=== PATIENT | male | born 1985 | race Two or more races ===

== ENCOUNTER 2019-02-25 08:14 | Inpatient (IN) | payer SELFPAY ==
[~2019-02-25] VITALS: Ht 162.6 cm; Wt 68.0 kg
[2019-02-25 08:17] VITALS: BP 145/97
--- NOTE | 2019-02-25 08:17 | NUR ---
ED Nurse Note: PT BROUGHT IN BY [facility]LEX[facility] FROM STREET. AOX1 - ONLY ORIENTED TO SELF BUT IS CALM AND COOPERATIVE. PER EMS, PT HAD A WITNESSED TONIC-CLONIC SEIZURE LASTING ABOUT 20 SECONDS WHEN BYSTANDER CALLED 911. AT BEDSIDE, PT IS ANSWERING QUESTIONS, SPEAKING IN FULL SENTENCES THOUGH CONFUSED.. SEIZURE PROTOCOL IN PLACE.
--- NOTE | 2019-02-25 08:18 | NUR ---
Note diana in EDM - 02/25/19 at 0842 by JOSE LUIS ED Nurse Note: PT DENIES ALCOHOL OR DRUG USE. PT STATES HIS LAST DRINK WAS 2 DAYS AGO. PT STATES THE ONLY DRUG HE USES IS WEED WHICH WAS LAST SMOKED 1 WEEK AGO.
--- NOTE | 2019-02-25 08:18 | NUR ---
ED Nurse Note: PT DENIES ALCOHOL OR DRUG USE TODAY. PT STATES HIS LAST DRINK WAS 2 DAYS AGO WHEN HE HAD A FEW BEERS. PT STATES THE ONLY DRUG HE USES IS WEED WHICH WAS LAST SMOKED 1 WEEK AGO.
--- NOTE | 2019-02-25 08:20 | NUR ---
ED Nurse Note: PT REFUSED TO COMPLETE MINI-COG. PT DRESSED IN WEATHER APPROPRIATE CLOTHING. FOOD OFFERED TO PT BUT PT REFUSED. PT GIVEN WATER. PT OFFERED RESOURCES REGARDING HOMELESS SHELTERS, FREE HEALTH CLINICS, AND DRUG AND ALCOHOL REHABILITATION BUT PT REFUSED. PT REFUSES TO DISCLOSE WHERE HE WILL GO ONCE DISCHARGED. THE ONLY THING PT STATES IS THAT HE HAS TO RETURN TO WORK ON WEDNESDAY.
[2019-02-25] MEDS ORDERED: UNOBMED (08:23)
[2019-02-25] MEDS ORDERED: LORazepam Inj 2mg/ml 1ml IV ONE ×4 (08:45→14:00)
[2019-02-25 08:51] LABS: BASOPHILS % (AUTO) 0.6 % (0.0-2.0); HEMATOCRIT 44.3 % (42.0-52.0); HEMOGLOBIN 14.5 G/DL (14.2-18.0); LYMPHOCYTES % (AUTO) 12.1 % (20.0-45.0); MEAN CORPUSCULAR VOLUME 92 FL (80-99); MONOCYTES % (AUTO) 7.5 % (1.0-10.0); NEUTROPHILS % (AUTO) 79.8 % (45.0-75.0); PLATELET COUNT 187 K/UL (150-450); RED BLOOD COUNT 4.83 M/UL (4.70-6.10); RED CELL DISTRIBUTION WIDTH 13.1 % (11.6-14.8); WHITE BLOOD COUNT 14.3 K/UL (4.8-10.8)
[2019-02-25 09:07] LABS: ANION GAP 24 mmol/L (5-15); BLOOD UREA NITROGEN 5 mg/dL (7-18); CALCIUM 9.8 MG/DL (8.5-10.1); CARBON DIOXIDE 15 MMOL/L (21-32); CHLORIDE 98 MMOL/L (98-107); CREATININE 1.3 MG/DL (0.55-1.30); POTASSIUM 3.8 MMOL/L (3.5-5.1); SODIUM 137 MMOL/L (136-145)
[2019-02-25 09:11] LABS: ALANINE AMINOTRANSFERASE 157 U/L (12-78); ALBUMIN 4.8 G/DL (3.4-5.0); ALBUMIN/GLOBULIN RATIO 1.2 (1.0-2.7); ALKALINE PHOSPHATASE 109 U/L (46-116); ASPARTATE AMINO TRANSFERASE 186 U/L (15-37); BILIRUBIN,TOTAL 0.9 MG/DL (0.2-1.0)
--- NOTE | 2019-02-25 11:22 | NUR ---
Note estivenone in EDM - 02/25/19 at 1132 by JOSE LUIS ED Nurse Note: PT LAYING PEACEFULLY IN BED IN NAD. AOX4. DISCHARGE PAPERWORK EXPLAINED TO PT. PT VERBALIZES UNDERSTANDING AND ALL QUESTIONS ANSWERED. DISCHARGE PAPERWORK GIVEN TO PT, IV AND ID WRISTBAND REMOVED. PT DRESSED IN WEATHER APPROPRIATE CLOTHING. PT OFFERED FOOD BUT REFUSED. PT GIVEN WATER. PT OFFERED RESOURCES ON HOMELESS SHELTERS, FREE HEALTH CLINICS, AND DRUG AND ALCOHOL REHABILITATION BUT PT REFUSED. PT STATES HE HAS A JOB AND DOES NOT NEED HELP AT THIS TIME. PT WALKED OUT OF ER WITH STEADY GAIT AND ALL BELONGINGS.
[2019-02-25] MEDS ORDERED: LORazepam Inj 2mg/ml 1ml IM ONE (11:30)
[2019-02-25] MEDS ORDERED: Haloperidol 5mg/ml Inj IM ONE (11:30)
--- NOTE | 2019-02-25 11:33 | NUR ---
ED Nurse Note: PT VERBALIZES DESIRE TO GET DISCHARGED, REMOVED LEADS AND GOT OUT OF GOWN AND INTO STREET CLOTHES. GAIT ASSESSED AND GAIT UNSTEADY. PT BROUGHT BACK TO BED AND PLACED BACK ON [employer]PERATIONS.
[2019-02-25 12:23] VITALS: BP 128/75
--- NOTE | 2019-02-25 12:40 | Emergency Room Report ---
History of Present Illness General Chief Complaint: Seizure Source: Patient, EMS (Lukas Zapata MD) Present Illness HPI 33-year-old female presents ED for evaluation. Brought in by EMS. Patient had reportedly had a seizure witnessed by bystanders. EMS states that witnesses described a convulsive nature but patient never lost consciousness. Patient denies hitting his head or LOC. Patient on arrival is somewhat tremulous. Is a poor historian. No signs of distress upon arrival. No other aggravating relieving factors. No other associated symptoms (Lukas Zapata MD) Allergies: Coded Allergies: UNABLE TO ASSESS (Unverified , 02/25/19) Patient History Past Medical History: none Past Surgical History: none Pertinent Family History: none Social History: Reports: drug use; Denies: smoking, alcohol use Immunizations: UTD Reviewed Nursing Documentation: PMH: Agreed; PSxH: Agreed (Lukas Zapata MD) Review of Systems All Other Systems: negative except mentioned in HPI (Lukas Zapata MD) Physical Exam Vital Signs Date Time Temp Pulse Resp B/P (MAP) Pulse Ox O2 Delivery O2 Flow Rate FiO2 02/25/19 08:11 99.0 136 20 152/87 (108) 98 Room Air Sp02 EP Interpretation: reviewed, normal General Appearance: no apparent distress, GCS 15, non-toxic Head: normocephalic, atraumatic Eyes: bilateral eye normal inspection, bilateral eye PERRL ENT: hearing grossly normal, normal pharynx, no angioedema, normal voice Neck: full range of motion, supple/symm/no masses Respiratory: chest non-tender, lungs clear, normal breath sounds, speaking full sentences Cardiovascular #1: regular rate, rhythm, no edema Cardiovascular #2: 2+ carotid (R), 2+ carotid (L), 2+ radial (R), 2+ radial (L) , 2+ dorsalis pedis (R), 2+ dorsalis pedis (L) Gastrointestinal: normal bowel sounds, non tender, soft, non-distended, no guarding, no rebound Rectal: deferred Genitourinary: normal inspection, no CVA tenderness Musculoskeletal: back normal, gait/station normal, normal range of motion, non- tender Neurologic: alert, responsive, motor strength/tone normal, sensory intact, speech normal, other - disoriented. tremulous Psychiatric: judgement/insight normal, memory normal, no suicidal/homicidal ideation, anxious Reflexes: 3+ bicep (R), 3+ bicep (L), 3+ tricep (R), 3+ tricep (L), 3+ knee (R) , 3+ knee (L) Lymphatic: no adenopathy (Lukas Zapata MD) Medical Decision Making Diagnostic Impression: Primary Impression: Methamphetamine abuse Additional Impression: Epileptic seizure, generalized Labs Test 02/25/19 08:30 White Blood Count 14.3 K/UL (4.8-10.8) Red Blood Count 4.83 M/UL (4.70-6.10) Hemoglobin 14.5 G/DL (14.2-18.0) Hematocrit 44.3 % (42.0-52.0) Mean Corpuscular Volume 92 FL (80-99) Mean Corpuscular Hemoglobin 30.1 PG (27.0-31.0) Mean Corpuscular Hemoglobin Concent 32.8 G/DL (32.0-36.0) Red Cell Distribution Width 13.1 % (11.6-14.8) Platelet Count 187 K/UL (150-450) Mean Platelet Volume 6.1 FL (6.5-10.1) Neutrophils (%) (Auto) 79.8 % (45.0-75.0) Lymphocytes (%) (Auto) 12.1 % (20.0-45.0) Monocytes (%) (Auto) 7.5 % (1.0-10.0) Eosinophils (%) (Auto) 0.0 % (0.0-3.0) Basophils (%) (Auto) 0.6 % (0.0-2.0) Sodium Level 137 MMOL/L (136-145) Potassium Level 3.8 MMOL/L (3.5-5.1) Chloride Level 98 MMOL/L (98-107) Carbon Dioxide Level 15 MMOL/L (21-32) Anion Gap 24 mmol/L (5-15) Blood Urea Nitrogen 5 mg/dL (7-18) Creatinine 1.3 MG/DL (0.55-1.30) Estimat Glomerular Filtration Rate > 60 mL/min (>60) Glucose Level 162 MG/DL (74-106) Calcium Level 9.8 MG/DL (8.5-10.1) Total Bilirubin 0.9 MG/DL (0.2-1.0) Aspartate Amino Transf (AST/SGOT) 186 U/L (15-37) Alanine Aminotransferase (ALT/SGPT) 157 U/L (12-78) Alkaline Phosphatase 109 U/L (46-116) Total Protein 8.8 G/DL (6.4-8.2) Albumin 4.8 G/DL (3.4-5.0) Globulin 4.0 g/dL Albumin/Globulin Ratio 1.2 (1.0-2.7) Salicylates Level 1.2 ug/mL (2.8-20) Urine Opiates Screen Negative (NEGATIVE) Acetaminophen Level < 2 MCG/ML (10-30) Urine Barbiturates Screen Negative (NEGATIVE) Phencyclidine (PCP) Screen Negative (NEGATIVE) Urine Amphetamines Screen Positive (NEGATIVE) Urine Benzodiazepines Screen Negative (NEGATIVE) Urine Cocaine Screen Negative (NEGATIVE) Urine Marijuana (THC) Screen Negative (NEGATIVE) Serum Alcohol < 3 mg/dL (Lukas Zapata MD) ER Course Patient was endorsed to me by Dr. Zapata. Patient was noted to have some prior history of possible seizure. Laboratory testing showed some positive for amphetamine. Patient was noted to be continued education after multiple doses of medications. He was given IV phenobarbital. He was noted to have intermittent tachycardia episodes. Dr. Drew was contacted from [facility] for inpatient management due to panel physician Labs Test 02/25/19 08:30 White Blood Count 14.3 K/UL (4.8-10.8) Red Blood Count 4.83 M/UL (4.70-6.10) Hemoglobin 14.5 G/DL (14.2-18.0) Hematocrit 44.3 % (42.0-52.0) Mean Corpuscular Volume 92 FL (80-99) Mean Corpuscular Hemoglobin 30.1 PG (27.0-31.0) Mean Corpuscular Hemoglobin Concent 32.8 G/DL (32.0-36.0) Red Cell Distribution Width 13.1 % (11.6-14.8) Platelet Count 187 K/UL (150-450) Mean Platelet Volume 6.1 FL (6.5-10.1) Neutrophils (%) (Auto) 79.8 % (45.0-75.0) Lymphocytes (%) (Auto) 12.1 % (20.0-45.0) Monocytes (%) (Auto) 7.5 % (1.0-10.0) Eosinophils (%) (Auto) 0.0 % (0.0-3.0) Basophils (%) (Auto) 0.6 % (0.0-2.0) Sodium Level 137 MMOL/L (136-145) Potassium Level 3.8 MMOL/L (3.5-5.1) Chloride Level 98 MMOL/L (98-107) Carbon Dioxide Level 15 MMOL/L (21-32) Anion Gap 24 mmol/L (5-15) Blood Urea Nitrogen 5 mg/dL (7-18) Creatinine 1.3 MG/DL (0.55-1.30) Estimat Glomerular Filtration Rate > 60 mL/min (>60) Glucose Level 162 MG/DL (74-106) Calcium Level 9.8 MG/DL (8.5-10.1) Total Bilirubin 0.9 MG/DL (0.2-1.0) Aspartate Amino Transf (AST/SGOT) 186 U/L (15-37) Alanine Aminotransferase (ALT/SGPT) 157 U/L (12-78) Alkaline Phosphatase 109 U/L (46-116) Total Protein 8.8 G/DL (6.4-8.2) Albumin 4.8 G/DL (3.4-5.0) Globulin 4.0 g/dL Albumin/Globulin Ratio 1.2 (1.0-2.7) Salicylates Level 1.2 ug/mL (2.8-20) Urine Opiates Screen Negative (NEGATIVE) Acetaminophen Level < 2 MCG/ML (10-30) Urine Barbiturates Screen Negative (NEGATIVE) Phencyclidine (PCP) Screen Negative (NEGATIVE) Urine Amphetamines Screen Positive (NEGATIVE) Urine Benzodiazepines Screen Negative (NEGATIVE) Urine Cocaine Screen Negative (NEGATIVE) Urine Marijuana (THC) Screen Negative (NEGATIVE) Serum Alcohol < 3 mg/dL (Isac Dominique MD) EKG Diagnostic Results Rate: tachycardiac Rhythm: NSR ST Segments: no acute changes ASA given to the pt in ED: No (Lukas Zapata MD) Rhythm Strip Diag. Results EP Interpretation: yes Rhythm: NSR, no PVC's, no ectopy (Lukas Zapata MD) Last Vital Signs Date Time Temp Pulse Resp B/P (MAP) Pulse Ox O2 Delivery O2 Flow Rate FiO2 02/25/19 12:23 98.5 115 21 128/75 98 Room Air Status: improved (Lukas Zapata MD) Status: unchanged (Isac Dominique MD) Disposition: ADMITTED INPATIENT Condition: Stable Referrals: NOT CHOSEN IPA/,REFERRING (PCP) [facility] Henson [facility] Patient Instructions: Stimulant Use Disorder-Methamphetamines Lukas Zapata MD Feb 25, 2019 12:40 Isac Dominique MD Feb 25, 2019 16:05
--- NOTE | 2019-02-25 14:08 | NUR ---
ED Nurse Note: FOLLOWED UP WITH THE PHARMACIST REGARDING THE ORDERED MED
[2019-02-25] MEDS ORDERED: LORazepam Inj 2mg/ml 1ml ONE (14:12)
--- NOTE | 2019-02-25 14:16 | NUR ---
ED Nurse Note: NAME PROVIDED FOR REGISTRATION BUT NOT UPDATED ON [employer]. MEDICATION PULLED FROM [employer] UNDER RADHA BALBUENA DONE WITH ALL PREVIOUS MEDICATIONS. PHARMACY AWARE.
--- NOTE | 2019-02-25 15:23 | NUR ---
ED Nurse Note: PT TO CT VIA RAIN.
[2019-02-25 15:44] VITALS: BP 122/84
[2019-02-25] MEDS ORDERED: Haloperidol 5mg/ml Inj IM PRN (16:45)
--- NOTE | 2019-02-25 16:51 | Diagnostic Imaging Report ---
EXAM: CT Head Without Intravenous Contrast CLINICAL HISTORY: AMS TECHNIQUE: Axial computed tomography images of the head brain without intravenous contrast. CTDI is 73.90 mGy and DLP is 2334 mGy-cm. One or more of the following dose reduction techniques were used: automated exposure control, adjustment of the mA and or kV according to patient size, use of iterative reconstruction technique. COMPARISON: none FINDINGS: Brain: Unremarkable. No hemorrhage. No significant white matter disease. No edema. Ventricles: Severe motion artifact degrades detail on the superior aspect of the head just above the lateral ventricles. Technologist reports the patient stood up at the end of the examination and there was no attempt at rescanning the patient. Bones joints: Limited assessment of the calvarium is unremarkable. Bilateral nasal bone fractures with associated deformity. Soft tissues: Unremarkable. Sinuses: Scattered sinus mucosal thickening involving the ethmoid air cells and greatest extent. Mastoids are clear. Mastoid air cells: See above. IMPRESSION: 1. Motion degraded study showing bilateral nasal bone fractures with associated deformity but no acute intracranial pathology. Consider short- term follow-up when the patient is better able to comply with positioning instructions. 2. It should be noted the patient's radiation dose is at least twice what is usually administered for an examination of this type. It could be that patient agitation and noncompliance with positioning explains the exposure but correlation with equipment QA testing is recommended. <MYCVCSECTION> [employer] 02 25 19 17:02 Verify Receipt Verified receipt with Dr. Dominique on 02 25 17:02 (-07:00)
--- NOTE | 2019-02-25 16:53 | History and Physical ---
History of Present Illness General Date patient seen: Feb 25, 2019 Time patient seen: 15:35 Reason for Hospitalization: Seizure, methamphetamine abuse Present Illness HPI Brian Dawson is a 33 yo man with no known PMH, homeless, who was brought in by ambulance after being witnessed outside by bystander for having a 20 seconds episode of "tonic clonic like" seizure. History obtained from chart, ED physician, and ED RN as patient altered and lethargic after receiving multiple doses of IV medication and unable to answer questions appropriately. Per RN, patient was confused on arrival and did not know where he was. He reportedly had last EtOH drink about 2 days ago and used marijuana about a week ago. In the ED, patient initially noted to be tachycardic to 130s and hypertensive to SBP 150s, temperature 99, since improved to BP 128/75 and HR in 90s after IV medication. Patient was given a total of 8mg IV ativan and 5mg IM haldol and phenobarbital 65mg x1 for severe agitation. Labs notable for mild leukocytosis 14.3, bicarb 15, AG 24, AST 186, ALT 157, and toxicology positive for amphetamines, serum alcohol negative. EKG with sinus tachycardia and RVH. Unable to obtain full ROS and PMH/PSH/FH/SH due to AMS. Allergies: Coded Allergies: UNABLE TO ASSESS (Unverified , 02/25/19) Medication History Miscellaneous Medications Unable to Obtain Medications (Unable To Obtain Meds), (Reported) Patient History Limited by: medical condition - amphetamine toxicity History Provided By: Medical Record, EMS Healthcare decision maker Resuscitation status Advanced Directive on File Review of Systems All Other Systems: negative except mentioned in HPI - unable to obtain full ROS due to AMS Physical Exam General Appearance: no apparent distress, lethargic, confused Lines, tubes and drains: peripheral HEENT: normocephalic, atraumatic Neck: supple Respiratory/Chest: lungs clear, no respiratory distress, no accessory muscle use Cardiovascular/Chest: regular rhythm, tachycardia Abdomen: normal bowel sounds, non tender, soft Extremities: no edema Skin Exam: warm/dry Neurologic: disoriented, other - reportedly agitated in ED, confused, AAOx0, lethargic on assessment after receiving multiple medications Musculoskeletal: normal muscle bulk Last 24 Hour Vital Signs Date Time Temp Pulse Resp B/P (MAP) Pulse Ox O2 Delivery O2 Flow Rate FiO2 02/25/19 15:44 98.4 89 17 122/84 98 Room Air 02/25/19 12:23 98.5 115 21 128/75 98 Room Air 02/25/19 08:17 137 23 Room Air 02/25/19 08:17 99.0 137 23 145/97 98 Room Air 02/25/19 08:11 99.0 136 20 152/87 (108) 98 Room Air Laboratory Tests Test 02/25/19 08:30 White Blood Count 14.3 K/UL (4.8-10.8) H Red Blood Count 4.83 M/UL (4.70-6.10) Hemoglobin 14.5 G/DL (14.2-18.0) Hematocrit 44.3 % (42.0-52.0) Mean Corpuscular Volume 92 FL (80-99) Mean Corpuscular Hemoglobin 30.1 PG (27.0-31.0) Mean Corpuscular Hemoglobin Concent 32.8 G/DL (32.0-36.0) Red Cell Distribution Width 13.1 % (11.6-14.8) Platelet Count 187 K/UL (150-450) Mean Platelet Volume 6.1 FL (6.5-10.1) L Neutrophils (%) (Auto) 79.8 % (45.0-75.0) H Lymphocytes (%) (Auto) 12.1 % (20.0-45.0) L Monocytes (%) (Auto) 7.5 % (1.0-10.0) Eosinophils (%) (Auto) 0.0 % (0.0-3.0) Basophils (%) (Auto) 0.6 % (0.0-2.0) Sodium Level 137 MMOL/L (136-145) Potassium Level 3.8 MMOL/L (3.5-5.1) Chloride Level 98 MMOL/L (98-107) Carbon Dioxide Level 15 MMOL/L (21-32) L Anion Gap 24 mmol/L (5-15) H Blood Urea Nitrogen 5 mg/dL (7-18) L Creatinine 1.3 MG/DL (0.55-1.30) Estimat Glomerular Filtration Rate > 60 mL/min (>60) Glucose Level 162 MG/DL (74-106) H Calcium Level 9.8 MG/DL (8.5-10.1) Total Bilirubin 0.9 MG/DL (0.2-1.0) Aspartate Amino Transf (AST/SGOT) 186 U/L (15-37) H Alanine Aminotransferase (ALT/SGPT) 157 U/L (12-78) H Alkaline Phosphatase 109 U/L (46-116) Total Protein 8.8 G/DL (6.4-8.2) H Albumin 4.8 G/DL (3.4-5.0) Globulin 4.0 g/dL Albumin/Globulin Ratio 1.2 (1.0-2.7) Salicylates Level 1.2 ug/mL (2.8-20) L Urine Opiates Screen Negative (NEGATIVE) Acetaminophen Level < 2 MCG/ML (10-30) L Urine Barbiturates Screen Negative (NEGATIVE) Phencyclidine (PCP) Screen Negative (NEGATIVE) Urine Amphetamines Screen Positive (NEGATIVE) H Urine Benzodiazepines Screen Negative (NEGATIVE) Urine Cocaine Screen Negative (NEGATIVE) Urine Marijuana (THC) Screen Negative (NEGATIVE) Serum Alcohol < 3 mg/dL Height (Feet): 5 Height (Inches): 4.00 Weight (Pounds): 150 Medications Current Medications Medications (Trade) Dose Ordered Sig/Ameya Route PRN Reason Start Time Stop Time Status Last Admin Dose Admin Dextrose (Dextrose 50%) 25 ml Q30M PRN IV Hypoglycemia 02/25/19 16:15 03/27/19 16:14 Dextrose (Dextrose 50%) 50 ml Q30M PRN IV Hypoglycemia 02/25/19 16:15 03/27/19 16:14 Dextrose/Sodium Chloride 1,000 ml @ 100 mls/hr Q10H IV 02/25/19 17:14 03/27/19 17:13 Enoxaparin Sodium (Lovenox) 40 mg Q24H SUBQ 02/25/19 18:00 03/27/19 17:59 Folic Acid (Folate) 1 mg DAILY ORAL 02/26/19 09:00 03/28/19 08:59 Haloperidol Lactate (Haldol) 2.5 mg Q6H PRN IM Agitation if ativan not work 02/25/19 16:45 03/27/19 16:44 UNV Lorazepam (Ativan 2mg/ml 1ml) 2 mg EVERY 2 HOURS PRN IV agitation or seizure 02/25/19 16:45 03/04/19 16:44 UNV Magnesium Sulfate 2000 mg/Folic Acid 1 mg/ Multivitamins 10 ml/Sodium Chloride 1,014.2 ml @ 500 mls/ hr ONCE ONCE IV 02/25/19 18:00 02/25/19 20:01 Magnesium Sulfate 2000 mg/Sodium Chloride 104 ml @ 100 mls/hr ONCE ONCE IV 02/25/19 18:00 02/25/19 19:02 Multivitamins (Multivitamins) 1 tab DAILY ORAL 02/26/19 09:00 03/28/19 08:59 Thiamine HCl (Vitamin B1) 100 mg DAILY ORAL 02/26/19 09:00 03/28/19 08:59 Thiamine HCl 100 mg/Dextrose 56 ml @ 112 mls/hr ONCE ONCE IV 02/25/19 18:00 02/25/19 18:29 Assessment/Plan Assessment/Plan: Brian Dawson is a 33 yo homeless man with no known PMH who was brought in by EMS after bystanders reportedly witness 20seconds of generalized seizure, found to be agitated, confused, tachycardic, hypertensive in ED, with labs notable for mild leukocytosis 14.3, bicarb 15, AG 24, transaminitis, negative serum alcohol , and toxicology positive for amphetamines. Psych/Substance: Amphetamine abuse, possible EtOH withdrawal, ?seizure - Agitation, hypertension, tachycardia, confusion can be explained by amphetamine use - Unclear if patient with other unknown ingestion - Consideration of EtOH withdrawal given reported witness of tonic clonic like movement by bystander - Hemodynamically much improved after IV ativan, haldol, and phenobarbital in ED with resolution of tachycardia and hypertension - Continue to monitor for signs/symptoms of withdrawal - Telemetry monitoring, low threshhold for ICU upgrade if signs of airway compromise or hemodynamic instability, currently none - Ativan 2mg IV q2hrs PRN agitation or seizure - Haldol 2.5mg IM q6hrs PRN agitation if not responsive to ativan - Banana bag x1 now, dextrose, and thiamine - Thiamine PO daily, multivitamin PO daily, folate PO daily - Keep NPO for now given AMS and confusion, aspiration risk. Can start regular diet once mental status improves - IVF with D5NS @ 100cc/hr while NPO - Social work consult Sinus tachycardia - resolved Hypertension - resolved - In setting of amphetamine abuse - Treatment as per above Transaminitis - Possibly 2/2 EtOH abuse - AST 186 ALT 157 on admission - Trend LFTs daily - Check hepatitis panel Metabolic acidemia with AG - AG 24 and bicarb 15 on admission - Check ABG, consider bicarb if needed - In setting of substance abuse - Supportive treatment as per above Mild Leukocytosis - Likely reactive in setting of substance abuse - No focal symptoms to suggest acute infection - Monitor CBC daily for now FEN D5NS@ 100cc/hr NPO given AMS Full Code Discussed with ED attending and RN. I spent 70 minutes on this patient care, including >50% in counseling and/or coordination of care. Diagnosis [place] I: Methamphetamine abuse substance abuse EtOH abuse Possible EtOH withdraw Metabolic acidemia Transaminitis Reactive leukocytosis Ping Drew M.D. Feb 25, 2019 16:53
--- NOTE | 2019-02-25 16:56 | NUR ---
ED Nurse Note: TELE UNIT CALLED FOR PT REPORT. REPORT GIVEN TO GEORGE ALEJO. RN READY TO ACCEPT PT. PT TAKEN UP TO TELE UNIT VIA GUHECTOR ON COMPOSITOR APPRENTICE WITH ALL BELONGINGS. VSS.
[2019-02-25] MEDS ORDERED: Thiamine 100mg tab ORAL SCH (17:00)
--- NOTE | 2019-02-25 17:17 | NUR ---
NURSE NOTES: Received report from GEORGE Izquierdo in ER. harleen Addendum: 02/25/19 at 1722 by Donny Scruggs RN (continued note) Patient placed on tele NSR with 89BPM noted. Breathing easily on RA. Patient nepali speaking stated " I need to go home" and then fell asleep. Easily rousable and aox3--stated he knew he was in hospital and had no pain currently. Lung sounds diminished and clear. Bowel sounds present. No sign of cardiac or respiratory distress. Skin intact with no bruising or redness noted and dry and intact all over. Called pharm for banana bag and started IVF while waiting (per JUL). bed alarm on with bed in lowest, locked position. explained call guzman and need to call before trying to get oob and if anything needed. Urinal in reach. Patient hands appeared shaky/unsteady when outstretched arms, but no other shaking noted. No diaphoresis currently. Patient denies hallucination or headache currently. WC Addendum: 02/25/19 at 1822 by Donny Scruggs RN Upon further evaluation patient aox1 stating he is in [place] when asked what country--continued to be calm and cooperative with bed alarm on . Patient voided and attempted to get oob--condom cath on now. patient washed up with other RNs. tm
[2019-02-25] MEDS: D5NS 1,000 ML IV SCH (17:23)
--- NOTE | 2019-02-25 17:39 | NUR ---
NURSE NOTES: 2 cans [place] [employer] found in patient bag--labelled with patient name and given to well logging mud analysis captain to secure belongings'.
[2019-02-25] MEDS ORDERED: Magnesium Sulfate 2,000 MG in NS 100 ML IV ONE (18:00)
[2019-02-25] MEDS ORDERED: Magnesium Sulfate 2,000 MG, Folic Acid 1 MG, Multivitamin - 12 Injection 10 ML in Sodiu... IV ONE (18:00)
[2019-02-25] MEDS ORDERED: Thiamine HCl 100 MG in D5W 55 ML IV ONE (18:00)
[2019-02-25] MEDS: Enoxaparin 40mg Inj SUBQ SCH (18:15)
[2019-02-25 18:23] VITALS: BP 137/78
--- NOTE | 2019-02-25 19:06 | NUR ---
NURSE NOTES: Report given to GEORGE Martin. Patient voiding clear yellow into condom cath. Bed alarm still on. Tele monitoring continued with patient HR remaining 80s except when patient occasionally attempting to get up oob. Patient is easily redirectable and falls back asleep/dozing with no discomfort noted. Patient refused flu and PNA and due to AMS--patient unable to answer many questions on admission evaluation. Patient stated he had BM yesterday but unable to provide any medical / medication history. Continued with close monitoring.
--- NOTE | 2019-02-25 19:10 | NUR ---
NURSE NOTES: Received report from Aisha Scruggs RN. Patient in bed asleep with no S/S of distress or acute pain at this time. Recovering from ETOH withdrawal, closely monitored for episodes of seizure. Kept on bedrest for safety and weakness. External catheter in place and changed PRN when soiled. IV line intact and patent with ordered fluids running. Patient on Continuous cardiac monitoring per protocol and currently on NPO status per MD. Safety precaution in place; siderails X3 up and padded, call light within reach, bed in lowest position and free from clutter, brakes and alarm on, and suction equipment at bedside. Needs and wants anticipated and attended, will continue plan of care and monitor for any changes noted.
[2019-02-25 20:00] VITALS: BP 137/84
[2019-02-26] VITALS: BP 111/63
--- NOTE | 2019-02-26 03:11 | NUR ---
NURSE NOTES: Patient in bed asleep with no S/S of distress at this time. Will continue to monitor.
[2019-02-26] MEDS: D5NS 1,000 ML IV SCH (03:14)
[2019-02-26 04:00] VITALS: BP 123/85
--- NOTE | 2019-02-26 07:20 | NUR ---
HAND-OFF: Report given to Aisha Scruggs RN. Patient in bed comfortable with no S/S of distress. Endorsed plan of care.
[2019-02-26 07:56] LABS: BASOPHILS % (AUTO) 0.4 % (0.0-2.0); EOSINOPHILS % (AUTO) 2.1 % (0.0-3.0); HEMATOCRIT 40.5 % (42.0-52.0); HEMOGLOBIN 13.6 G/DL (14.2-18.0); LYMPHOCYTES % (AUTO) 23.7 % (20.0-45.0); MEAN CORPUSCULAR VOLUME 91 FL (80-99); MONOCYTES % (AUTO) 11.1 % (1.0-10.0); NEUTROPHILS % (AUTO) 62.7 % (45.0-75.0); PLATELET COUNT 146 K/UL (150-450); RED BLOOD COUNT 4.48 M/UL (4.70-6.10); RED CELL DISTRIBUTION WIDTH 12.6 % (11.6-14.8); WHITE BLOOD COUNT 5.5 K/UL (4.8-10.8)
[2019-02-26 08:00] VITALS: BP 129/84
--- NOTE | 2019-02-26 08:02 | NUR ---
NURSE NOTES: Received report from GEORGE Carmona. Patient was found attempting to get oob and remove his IV. Discussed importance of keeping IV and calling before trying to get oob or if he needs anything. Demonstrated call guzman with patient--who stated he understood. Yellow socks, signage and all fall precautions in place including be in lowest , locked position with bed alarm on. Call guzman and urinal in reach. Putting in PT consult. Patient unsteady but can follow commands. AOX3 with calm, cooperative affect but remains short attention span and forgetful with minimal safety awareness. Patient near RN station for safety. Patient still NPO for aspiration precautions--calling dr to check on advancing diet. WCTM
[2019-02-26 08:17] LABS: ALANINE AMINOTRANSFERASE 108 U/L (12-78); ALBUMIN 3.7 G/DL (3.4-5.0); ALKALINE PHOSPHATASE 81 U/L (46-116); ANION GAP 10 mmol/L (5-15); ASPARTATE AMINO TRANSFERASE 129 U/L (15-37); BILIRUBIN,DIRECT 0.4 MG/DL (0.0-0.3); BLOOD UREA NITROGEN 2 mg/dL (7-18); CALCIUM 8.6 MG/DL (8.5-10.1); CARBON DIOXIDE 27 MMOL/L (21-32); CHLORIDE 101 MMOL/L (98-107); CREATININE 0.6 MG/DL (0.55-1.30); POTASSIUM 3.5 MMOL/L (3.5-5.1); SODIUM 137 MMOL/L (136-145)
[2019-02-26] MEDS: Thiamine 100mg tab ORAL SCH (08:43)
[2019-02-26] MEDS: LORazepam Inj 2mg/ml 1ml IV PRN (09:08)
--- NOTE | 2019-02-26 09:15 | NUR ---
NURSE NOTES: Patient found agitated and shaking trying to get oob to urinate--voided 500 (patient had pulled off condom cath). Hygiene provided . Alc withdrawal assessment revealed increase since previous check--2mg ativan given per MAR. Patient has new condom cath and is comfortable in be lowest, locked with yellow socks and alarm on. WCTM frequently to avoid patient removing IV or getting oob.
[2019-02-26] MEDS: chlordiazePOXIDE 25mg Cap ORAL SCH ×4 (10:26→20:30)
[2019-02-26 12:00] VITALS: BP 113/74
--- NOTE | 2019-02-26 14:48 | NUR ---
PT Note PT jim completed, treatment initiated. Patient was able to ambulate with a FWW; gait is very unsteady, frequent scissoring noted, making him at a high risk for falls. Patient will benefit from PT services to increase his muscle strength and balance to improve his safety in functional mobility and gait. Addendum: 02/26/19 at 1448 by SHEEBA LUJAN PT Amended: Links added.
[2019-02-26 16:00] VITALS: BP 115/71
--- NOTE | 2019-02-26 17:41 | General Progress Note ---
Assessment/Plan Status: progressing Assessment/Plan: Brian Dawson is a 33 yo homeless man with no known PMH who was brought in by EMS after bystanders reportedly witness 20seconds of generalized seizure, found to be agitated, confused, tachycardic, hypertensive in ED, with labs notable for mild leukocytosis 14.3, bicarb 15, AG 24, transaminitis, negative serum alcohol , and toxicology positive for amphetamines. Patient admitted for substance abuse and EtOH withdraw. Psych/Substance: Amphetamine abuse, EtOH withdrawal, ?seizure - Agitation, hypertension, tachycardia, confusion can be explained by amphetamine use - Consideration of EtOH withdrawal given reported witness of tonic clonic like movement by bystander - Hemodynamically much improved after IV ativan, haldol, and phenobarbital in ED with resolution of tachycardia and hypertension - Continue to monitor for signs/symptoms of withdrawal - Telemetry monitoring, low threshhold for ICU upgrade if signs of airway compromise or hemodynamic instability, currently none - Librium taper for EtOH/substance withdraw - Ativan 2mg IV q2hrs PRN agitation or seizure - Haldol 2.5mg IM q6hrs PRN agitation if not responsive to ativan - Banana bag x1 now, dextrose, and thiamine - Thiamine PO daily, multivitamin PO daily, folate PO daily - D/C IVF as patient mental status much improved and tolerating PO - Social work consult - Patient's mental status much improved today and much less agitated - CT head without acute intracranial pathology but with nasal bone fracture deformity. Patient asymptomatic at this time, ENT f/u as outpatient. - PT consult Sinus tachycardia - resolved Hypertension - resolved - In setting of amphetamine abuse - Treatment as per above Transaminitis - improving - Possibly 2/2 EtOH abuse - AST 186 ALT 157 on admission, improved to 129 and 108 today respectively - Trend LFTs daily - F/U hepatitis panel - Patient without abdominal pain or tenderness Metabolic acidemia with AG - resolved - AG 24 and bicarb 15 on admission - ABG without acidemia - In setting of substance abuse - Supportive treatment as per above - Resolved on labs today Mild Leukocytosis - resolved - Likely reactive in setting of substance abuse - No focal symptoms to suggest acute infection - Resolved on labs today FEN Regular diet Full Code Lovenox sbuq DVT ppx Discussed with RN. I spent 38 minutes on this patient care, including >50% in counseling and/or coordination of care. Subjective Date patient seen: Feb 26, 2019 Constitutional: Reports: no symptoms HEENT: Reports: no symptoms Cardiovascular: Reports: no symptoms Respiratory: Reports: no symptoms Gastrointestinal/Abdominal: Reports: no symptoms Genitourinary: Reports: no symptoms Neurologic/Psychiatric: Reports: tremors, weakness Endocrine: Reports: no symptoms Hematologic/Lymphatic: Reports: no symptoms Allergies: Coded Allergies: No Known Allergies (Unverified , 02/25/19) Subjective Patient seen and examined. RN provided [place] translation at bedside. Patient much improved today, AAOx3. Admits to EtOH use and additional substance abuse intranasally, denies IVDU. Evaluated by PT, noted with very unsteady gait. Denies any hallucinations. Objective Last 24 Hour Vital Signs Date Time Temp Pulse Resp B/P (MAP) Pulse Ox O2 Delivery O2 Flow Rate FiO2 02/26/19 16:00 97.9 78 20 115/71 (86) 98 02/26/19 16:00 81 02/26/19 13:25 Room Air 02/26/19 12:00 97.8 87 20 113/74 (87) 99 02/26/19 12:00 82 02/26/19 09:00 Room Air 02/26/19 08:00 63 02/26/19 08:00 98.2 80 20 129/84 (99) 99 02/26/19 04:00 98.4 86 18 123/85 (98) 98 02/26/19 04:00 69 02/26/19 00:00 74 02/26/19 00:00 98.0 65 18 111/63 (79) 98 02/25/19 21:00 Room Air 02/25/19 20:00 84 02/25/19 20:00 98.2 102 18 137/84 (101) 98 02/25/19 18:37 Room Air 02/25/19 18:23 100.6 91 18 137/78 (97) 97 Intake and Output 02/25/19 02/26/19 19:00 07:00 Output Total 250 ml Balance -250 ml Output Urine Total 250 ml # Voids 1 1 Laboratory Tests 02/25/19 17:40: Lactic Acid Level 0.50, Magnesium Level 2.1 02/25/19 17:45: Arterial Blood pH 7.436, Arterial Blood Partial Pressure CO2 35.3, Arterial Blood Partial Pressure O2 78.8, Arterial Blood HCO3 23.2, Arterial Blood Oxygen Saturation 95.4, Arterial Blood Base Excess -0.5, Lloyd Test Positive 02/26/19 06:50: Magnesium Level 2.0, White Blood Count 5.5#, Red Blood Count 4.48L, Hemoglobin 13.6L, Hematocrit 40.5L, Mean Corpuscular Volume 91, Mean Corpuscular Hemoglobin 30.4, Mean Corpuscular Hemoglobin Concent 33.6, Red Cell Distribution Width 12.6, Platelet Count 146L, Mean Platelet Volume 6.2L, Neutrophils (%) (Auto) 62.7, Lymphocytes (%) (Auto) 23.7, Monocytes (%) (Auto) 11.1H, Eosinophils (%) (Auto) 2.1, Basophils (%) (Auto) 0.4, Sodium Level 137, Potassium Level 3.5, Chloride Level 101, Carbon Dioxide Level 27, Anion Gap 10, Blood Urea Nitrogen 2L, Creatinine 0.6#, Estimat Glomerular Filtration Rate > 60 , Glucose Level 99, Calcium Level 8.6, Total Bilirubin 2.0H, Direct Bilirubin 0.4H, Aspartate Amino Transf (AST/SGOT) 129H, Alanine Aminotransferase (ALT/SGPT ) 108H, Alkaline Phosphatase 81, Total Protein 7.1, Albumin 3.7, Thyroid Stimulating Hormone (TSH) 1.798, Hepatitis A IgM Antibody [Pending], Hepatitis B Surface Antigen [Pending], Hepatitis B Core IgM Antibody [Pending], Hepatitis C Antibody [Pending] Height (Feet): 5 Height (Inches): 4.00 Weight (Pounds): 150 General Appearance: no apparent distress, alert, alert oriented x3 Neck: supple Cardiovascular: normal peripheral pulses, normal rate, regular rhythm Respiratory/Chest: lungs clear, normal breath sounds, no respiratory distress Abdomen: normal bowel sounds, non tender, soft Extremities: non-tender, no calf tenderness Edema: no edema noted Arm (L), no edema noted Arm (R), no edema noted Leg (L), no edema noted Leg (R), no edema noted Pedal (L), no edema noted Pedal (R), no edema noted Generalized Neurologic: abnormal gait, alert, oriented x 3, other - occasional tremors in UE Skin: warm/dry Ping Drew M.D. Feb 26, 2019 17:41
[2019-02-26] MEDS: Enoxaparin 40mg Inj SUBQ SCH (17:43)
--- NOTE | 2019-02-26 18:08 | NUR ---
NURSE NOTES: Patient found oob with alarm ringing multiple times today. Patient restated that he understood that he will need to stay until tomorrow and will stay in bed and ask for help when need to void. Walked in zaman with patient 4 laps around unit with max assist x1. Unsteady gait and continuing with close monitoring. Bed in lowest , locked position and alarm on. Patient calm in bed after eating dinner 100% with no nvd. Alc withdrawal evals appear to be improved since librium administration. Urinal and call guzman in reach.
--- NOTE | 2019-02-26 19:32 | NUR ---
NURSE NOTES: Received report from Aisha Scruggs RN. Patient in bed asleep with no S/S of distress or acute pain at this time. Recovering from ETOH withdrawal, closely monitored for episodes of seizure. Kept on bedrest for safety and weakness. External catheter in place and changed PRN when soiled. IV line intact and patent with ordered fluids running. Patient on Continuous cardiac monitoring per protocol. Safety precaution in place; siderails X3 up and padded, call light within reach, bed in lowest position and free from clutter, brakes and alarm on, and suction equipment at bedside. Needs and wants anticipated and attended, will continue plan of care and monitor for any changes noted. Patients diet upgraded to Regular per MD. Appears to be more coherent today but reinforcement of safety precaution still ongoing. Stated that patient has to be in bed d/t weakness and unsteady gait, and to use call light, ask assistance from staff when trying to go to the bathroom.
[2019-02-26 20:00] VITALS: BP 111/74
[2019-02-27] VITALS: BP 109/76
[2019-02-27 04:00] VITALS: BP 111/80
--- NOTE | 2019-02-27 05:26 | NUR ---
NURSE NOTES: Patient in bed asleep with no S/S of distress at this time. Will continue to monitor
--- NOTE | 2019-02-27 07:19 | NUR ---
HAND-OFF: Report given to Aisha Scruggs RN. Patient in bed comfortable with no S/S of distress. Endorsed plan of care.
[2019-02-27 07:48] LABS: BASOPHILS % (AUTO) 0.9 % (0.0-2.0); HEMATOCRIT 44.5 % (42.0-52.0); HEMOGLOBIN 14.9 G/DL (14.2-18.0); LYMPHOCYTES % (AUTO) 30.9 % (20.0-45.0); MEAN CORPUSCULAR VOLUME 91 FL (80-99); MONOCYTES % (AUTO) 11.5 % (1.0-10.0); NEUTROPHILS % (AUTO) 52.8 % (45.0-75.0); PLATELET COUNT 157 K/UL (150-450); RED BLOOD COUNT 4.87 M/UL (4.70-6.10); RED CELL DISTRIBUTION WIDTH 12.8 % (11.6-14.8); WHITE BLOOD COUNT 4.4 K/UL (4.8-10.8)
[2019-02-27 07:54] LABS: ALANINE AMINOTRANSFERASE 133 U/L (12-78); ALBUMIN 3.8 G/DL (3.4-5.0); ALKALINE PHOSPHATASE 88 U/L (46-116); ANION GAP 7 mmol/L (5-15); ASPARTATE AMINO TRANSFERASE 146 U/L (15-37); BILIRUBIN,DIRECT 0.2 MG/DL (0.0-0.3); BILIRUBIN,TOTAL 1.2 MG/DL (0.2-1.0); BLOOD UREA NITROGEN 5 mg/dL (7-18); CALCIUM 9.1 MG/DL (8.5-10.1); CARBON DIOXIDE 29 MMOL/L (21-32); CHLORIDE 103 MMOL/L (98-107); CREATININE 0.7 MG/DL (0.55-1.30); POTASSIUM 3.5 MMOL/L (3.5-5.1); SODIUM 139 MMOL/L (136-145)
--- NOTE | 2019-02-27 07:58 | NUR ---
NURSE NOTES: Received report from GEORGE mathews. Patient found eating breakfast with calm, cooperative affect.AOX2-3 stating "I fell better. I feel like superman!" Bed alarm on and bed in lowest locked position with all fall precautions in place. No sign of cardiac or respiratory distress.
[2019-02-27 08:00] VITALS: BP 105/69
[2019-02-27] MEDS: Thiamine 100mg tab ORAL SCH (08:21)
[2019-02-27] MEDS: chlordiazePOXIDE 25mg Cap ORAL SCH ×4 (08:23→22:19)
--- NOTE | 2019-02-27 08:53 | General Progress Note ---
Assessment/Plan Status: progressing Assessment/Plan: Brian Dawson is a 33 yo homeless man with no known PMH who was brought in by EMS after bystanders reportedly witness 20seconds of generalized seizure, found to be agitated, confused, tachycardic, hypertensive in ED, with labs notable for mild leukocytosis 14.3, bicarb 15, AG 24, transaminitis, negative serum alcohol , and toxicology positive for amphetamines. Patient admitted for substance abuse and EtOH withdraw. Psych/Substance: Amphetamine abuse, EtOH withdrawal, ?seizure - Agitation, hypertension, tachycardia, confusion can be explained by amphetamine use - Consideration of EtOH withdrawal given reported witness of tonic clonic like movement by bystander - Hemodynamically much improved after IV ativan, haldol, and phenobarbital in ED with resolution of tachycardia and hypertension - Continue to monitor for signs/symptoms of withdrawal. Much better today, ambulating independently, still with significant tremor - Telemetry monitoring, low threshhold for ICU upgrade if signs of airway compromise or hemodynamic instability, currently none - Librium taper for EtOH/substance withdraw - Ativan 2mg IV q2hrs PRN agitation or seizure - Haldol 2.5mg IM q6hrs PRN agitation if not responsive to ativan - Banana bag x1 now, dextrose, and thiamine - Thiamine PO daily, multivitamin PO daily, folate PO daily - D/C IVF as patient mental status much improved and tolerating PO - Social work consult - Patient's mental status much improved today and much less agitated - CT head without acute intracranial pathology but with nasal bone fracture deformity. Patient asymptomatic at this time, ENT f/u as outpatient. - PT consult Sinus tachycardia - resolved Hypertension - resolved - In setting of amphetamine abuse - Treatment as per above Transaminitis - improving - Possibly 2/2 EtOH abuse - AST 186 ALT 157 on admission, improved to 129 and 108 today respectively - Trend LFTs daily - F/U hepatitis panel - Patient without abdominal pain or tenderness Metabolic acidemia with AG - resolved - AG 24 and bicarb 15 on admission - ABG without acidemia - In setting of substance abuse - Supportive treatment as per above - Resolved on labs today Mild Leukocytosis - resolved - Likely reactive in setting of substance abuse - No focal symptoms to suggest acute infection - Resolved on labs today FEN Regular diet Full Code Lovenox sbuq DVT ppx Disposition: Home when stable Discussed with RN. I spent 40 minutes on this patient care, including >50% in counseling and/or coordination of care. Subjective Date patient seen: Feb 27, 2019 Constitutional: Denies: no symptoms, chills, diaphoresis, fever, malaise, weakness, other HEENT: Denies: no symptoms, eye pain, blurred vision, tearing, double vision, ear pain, ear discharge, nose pain, nose congestion, throat pain, throat swelling, mouth pain, mouth swelling, other Cardiovascular: Denies: no symptoms, chest pain, edema, irregular heart rate, lightheadedness, palpitations, syncope, other Respiratory: Denies: no symptoms, cough, orthopnea, shortness of breath, SOB with excertion, SOB at rest, sputum, stridor, wheezing, other Gastrointestinal/Abdominal: Denies: no symptoms, abdomen distended, abdominal pain, black stools, tarry stools, blood in stool, constipated, diarrhea, difficulty swallowing, nausea, poor appetite, poor fluid intake, rectal bleeding , vomiting, other Genitourinary: Denies: no symptoms, burning, discharge, frequency, flank pain, hematuria, incontinence, pain, urgency, other Neurologic/Psychiatric: Reports: tremors - hand tremors ; Denies: no symptoms, anxiety, depressed, emotional problems, headache, numbness, paresthesia, pre- existing deficit, seizure, tingling, weakness, other Endocrine: Denies: no symptoms, excessive sweating, flushing, intolerance to cold, intolerance to heat, increased hunger, increased thirst, increased urine, unexplained weight gain, unexplained weight loss, other Hematologic/Lymphatic: Denies: no symptoms, anemia, easy bleeding, easy bruising, other Allergies: Coded Allergies: No Known Allergies (Unverified , 02/25/19) Subjective feels good wants to leave the hospital to go to work walking around, ambulating independently Objective Last 24 Hour Vital Signs Date Time Temp Pulse Resp B/P (MAP) Pulse Ox O2 Delivery O2 Flow Rate FiO2 02/27/19 08:00 97.4 94 18 105/69 (81) 97 02/27/19 04:00 63 02/27/19 04:00 98.2 74 21 111/80 (90) 99 02/27/19 00:00 94 02/27/19 00:00 98.1 78 21 109/76 (87) 99 02/26/19 21:00 Room Air 02/26/19 20:00 88 02/26/19 20:00 98.7 76 20 111/74 (86) 99 02/26/19 16:00 97.9 78 20 115/71 (86) 98 02/26/19 16:00 81 02/26/19 13:25 Room Air 02/26/19 12:00 97.8 87 20 113/74 (87) 99 02/26/19 12:00 82 02/26/19 09:00 Room Air Intake and Output 02/26/19 02/27/19 19:00 07:00 Intake Total 1040 ml 240 ml Output Total 800 ml Balance 240 ml 240 ml Intake Oral 1040 ml 240 ml Output Urine Total 800 ml # Voids 3 2 # Bowel Movements 3 Laboratory Tests 02/27/19 05:39: White Blood Count 4.4L, Red Blood Count 4.87, Hemoglobin 14.9, Hematocrit 44.5, Mean Corpuscular Volume 91, Mean Corpuscular Hemoglobin 30.7, Mean Corpuscular Hemoglobin Concent 33.6, Red Cell Distribution Width 12.8, Platelet Count 157, Mean Platelet Volume 6.1L, Neutrophils (%) (Auto) 52.8, Lymphocytes (%) (Auto) 30.9, Monocytes (%) (Auto) 11.5H, Eosinophils (%) (Auto) 4.0H, Basophils (%) ( Auto) 0.9, Sodium Level 139, Potassium Level 3.5, Chloride Level 103, Carbon Dioxide Level 29, Anion Gap 7, Blood Urea Nitrogen 5L, Creatinine 0.7, Estimat Glomerular Filtration Rate > 60, Glucose Level 92, Calcium Level 9.1, Total Bilirubin 1.2H, Direct Bilirubin 0.2, Aspartate Amino Transf (AST/SGOT) 146H, Alanine Aminotransferase (ALT/SGPT) 133H, Alkaline Phosphatase 88, Total Protein 7.6, Albumin 3.8 Height (Feet): 5 Height (Inches): 4.00 Weight (Pounds): 150 Objective General Appearance: no apparent distress, alert, alert oriented x3 Neck: supple Cardiovascular: normal peripheral pulses, normal rate, regular rhythm Respiratory/Chest: lungs clear, normal breath sounds, no respiratory distress Abdomen: normal bowel sounds, non tender, soft Extremities: non-tender, no calf tenderness Edema: no edema noted Arm (L), no edema noted Arm (R), no edema noted Leg (L), no edema noted Leg (R), no edema noted Pedal (L), no edema noted Pedal (R), no edema noted Generalized Neurologic: abnormal gait, alert, oriented x 3, other - occasional tremors in UE Skin: warm/dry Jony Barajas M.D. Feb 27, 2019 08:53
--- NOTE | 2019-02-27 09:45 | NUR ---
Social Service Note SW and CM coordinator (provided [place] translation) met with patient to assess for homelessness. Patient was alert, oriented and verbally responsive. Patient states he has only been homeless for the past 15 days. Patient was receiving housing through his employer and he is no longer working for him at this time. Patent states he has been on the streets. However during this time he has found another job and will have a place to stay upon discharge from the hospital. Patient admits to recent extensive drinking due to loss of job and his mother passing away in [place]. Patient doesn't consider himself an alcoholic. Resources placed in chart to be provided to patient upon discharge. Patient initially stated he was going to sign out AMA but changed his mind and stated he will wait until tomorrow in anticipation of dc by . Patient will be screened by [facility]. Patient is non-documented. Patient will attempt to contact his employer to inform of recent hospitalization. Patient states he hasn't had prior medical issues. Patient doesn't have an emergency contact. Patient states he will have a place to go to upon discharge. Homeless check list to be completed upon discharge. Will continue to monitor and assist as needed.
--- NOTE | 2019-02-27 11:36 | Cardiology Report ---
APPROVED REPORT EKG Measurement Heart [id number] Normal sinus rhythm with sinus arrhythmia Possible Lateral infarct, age undetermined Abnormal ECG
--- NOTE | 2019-02-27 11:40 | Cardiology Report ---
APPROVED REPORT EKG Measurement Heart [id number] Sinus tachycardia Possible Right ventricular hypertrophy Abnormal ECG
[2019-02-27 12:00] VITALS: BP 111/79
--- NOTE | 2019-02-27 13:47 | NUR ---
NURSE NOTES: Patient agreed to stay until tomorrow. Provided phone to patient to call his work--assisted with call but person answering phone stated it was a wrong #. Patient stated that emplyer always says that when he calls to inform of missing work. Homeless paperwork packet begun and in chart. Offered flu vaccine to patient--agreed by patient. Fall precautions cont'd with bed alarm on.
--- NOTE | 2019-02-27 14:04 | NUR ---
HOMELESS COORDINATOR spoke with patient and patient is alert and oriented. Patient does not have a contact number Patient states he is chronically homeless. Patient would like resources for a alf. Patient states he has been homeless for 15 days after he lost his job. 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 Patient states he has a brother that stays an hour away, but doesn't have his contact. Patient states he has no income at the moment. Patient states he only does marijuana. Patient states he does not suffer from mental Health. Patient states he only hears voices when he drinks. patient states he does not have a PCP and would like resources for nearby clinics. Patient plans on going to new job upon discharge. Patient states its a possibility he can stay in the garage of his new job location. Patient does not speak serbian, Deandra from the Medical department translated for HC. Patient continues to require medical intervention. Will continue to monitor and assist as needed.
[2019-02-27 15:25] VITALS: BP 97/63
--- NOTE | 2019-02-27 18:27 | NUR ---
CASE MANAGEMENT: INITIAL REVIEW 33 YO M [address] CC: KAYLAN PMHx: DENIES SI: ETOH WITHDRAWAL. T 99 HR 136 RR 20 B/P 152/87 SATS 98% ON RA WBC 14.3 CO2 15 BUN 5 GLU 162 AST 186 ALT 157 UTOX (+METH) IS: ATIVAN IV X5 NS BOLUS X2 HALDOL IM X1 PHENOBARBITAL IV X1 PATIENT ADMITTED TO TELE 02/25/2019 @ 6360 DCP: PATIENT TO BE DISCHARGED TO APPROPRIATE LOCATION ONCE MEDICALLY CLEARED. PLAN OF CARE: SSW CONSULT KAYLAN AND [employer] INTERQUAL MET
[2019-02-27] MEDS: Enoxaparin 40mg Inj SUBQ SCH (18:36)
--- NOTE | 2019-02-27 19:20 | NUR ---
NURSE NOTES: Received report from GEORGE Caruso. Patient in bed awake showing no signs of acute distress. AOx3 (mainly speaks Chinese). Respiration even and non labored on room air. No sob noted. IV noted on Right fa 20g SL patent and intact. Bed in lowest position, wheels locked, side rails up x2 and padded. Call button within reach. All needs attended and met. Will continue plan of care.
[2019-02-27 20:00] VITALS: BP 127/74
[2019-02-28] VITALS: BP_SYST 122; BP_SYST 125; BP_DIAS 72; BP_DIAS 74
[2019-02-28 04:00] VITALS: BP 103/70
[2019-02-28] MEDS: chlordiazePOXIDE 25mg Cap ORAL SCH (04:53)
--- NOTE | 2019-02-28 07:24 | NUR ---
HAND-OFF: Report given to GEORGE Moreno.
--- NOTE | 2019-02-28 07:30 | NUR ---
NURSE NOTES: Pt awake/alert sitting in a chair eating breakfast, breathing easily on room air, denies SOB and denies pain at this time. Vital signs stable with SR @ 69 on monitor. Noticeable tremors in both hands at pt eats his breakfast. Pt asked if he wanted something to help with the shaking, pt said yes, Ativan given per eMAR. Pt also indicated that he wanted to leave the hospital today, encouraged to stay until either MD or social media manager could see him this morning. Pt left sitting in the chair, bed left in low position, side rails up x 2 and call light left near pt's hand.
[2019-02-28] MEDS: Thiamine 100mg tab ORAL SCH (07:56)
[2019-02-28] MEDS: LORazepam Inj 2mg/ml 1ml IV PRN (07:56)
[2019-02-28 08:00] VITALS: BP 116/60
[2019-02-28 08:01] LABS: ALANINE AMINOTRANSFERASE 141 U/L (12-78); ALBUMIN 3.6 G/DL (3.4-5.0); ALKALINE PHOSPHATASE 78 U/L (46-116); ANION GAP 9 mmol/L (5-15); ASPARTATE AMINO TRANSFERASE 122 U/L (15-37); BILIRUBIN,TOTAL 0.8 MG/DL (0.2-1.0); BLOOD UREA NITROGEN 4 mg/dL (7-18); CALCIUM 9.2 MG/DL (8.5-10.1); CARBON DIOXIDE 26 MMOL/L (21-32); CHLORIDE 105 MMOL/L (98-107); CREATININE 0.7 MG/DL (0.55-1.30); SODIUM 140 MMOL/L (136-145)
--- NOTE | 2019-02-28 09:15 | NUR ---
NURSE NOTES: Pt insisted on leaving AMA. 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 Pt encouraged to return the the hospital for any change in his condition such as pain, SOB, uncontrollable tremors, nausea/vomiting et al. Pt stated that he understood. Pt signed AMA and homeless discharge paper indicating that he does not want to avail himself of further hospital services. IV access and tele monitor removed from pt. Pt walked out of the hospital unassisted with a VERTICAL PUNCH OPERATOR showing him to the exit.
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
== END 2019-02-28 09:35 | disposition left against medical advice (07) | DRG 894 ==
LOC: EDBD 08:14 → EMR 08:35 → EDBD 08:35 → EMR 11:26 → EDBEDREQ 16:09 → 2E 16:19
DX: F10.239 Alcohol dependence with withdrawal, unspecified (principal); F15.10 Other stimulant abuse, uncomplicated; R56.9 Unspecified convulsions; P19.9 Metabolic acidemia in newborn, unspecified; R45.1 Restlessness and agitation; Z59.0 Homelessness; I10 Essential (primary) hypertension; R00.0 Tachycardia, unspecified; R74.0 Nonspecific elevation of levels of transaminase and lactic acid dehydrogenase [LDH]
CPT/HCPCS: 36415; 36600; 70450; 80048; 80053; 80076; 80307; 80329; 82803; 83605; 83735; 84443; 85025; 86705; 86709; 86803; 87340; 93005; 96361; 96372; 96374; 96376; 99285

== ENCOUNTER 2019-03-02 22:07 | Emergency (ER) | payer SELFPAY ==
[~2019-03-02] VITALS: Ht 160 cm; Wt 68.0 kg
[~2019-03-02 22:07] MED LIST: UNOBMED
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
[2019-03-02 22:30] VITALS: BP 118/90
--- NOTE | 2019-03-02 23:22 | Diagnostic Imaging Report ---
Indication: Head trauma headache Technique: Contiguous 5 mm thick transaxial imaging of the head obtained in a Siemens Sensation [address] scanner. Soft tissue and bone windows generated. Automatic Exposure Control was utilized. Total Dose length Product (DLP): [address] Dose Index Volume (CTDIvol): 60 mGy Comparison: none Findings: The size and configuration of the cortical sulci, basal cisterns, and ventricles are within normal limits for age. There is no mass effect, midline shift, or edema identified. There is no evidence of acute hemorrhage or abnormal intra-axial or extra-axial fluid collections. The bones and soft tissues are unremarkable. There is a right frontal cephalohematoma demonstrated. Impression: No mass effect, edema or acute bleed. Right frontal cephalohematoma The CT scanner at [facility] is accredited by the [employer] and the scans are performed using dose optimization techniques as appropriate to a performed exam including Automatic Exposure control.
[2019-03-03] VITALS: BP 122/85
--- NOTE | 2019-03-03 | NUR ---
ED Nurse Note: pt ao4. nad. vss. ambulates steady to bathroom. provided nourishment. pt went back to bed and fell asleep.
--- NOTE | 2019-03-03 01:44 | NUR ---
ED Nurse Note: pt awake. ambulated to bathroom. pt request to wash up. pt provided with towels and soap.
[2019-03-03 02:00] VITALS: BP 121/81
[2019-03-03 04:00] VITALS: BP 118/80
--- NOTE | 2019-03-03 04:00 | NUR ---
ED Nurse Note: PATIENT SLEEPING COMFORTABLY IN BED. RESPIRATIONS EVEN AND UNLABORED.
--- NOTE | 2019-03-03 05:00 | NUR ---
ED Nurse Note: PATIENT AAO4. PT REQUESTS TO GO HOME. PT DECLINED TO DISCLOSE LOCATION AFTER DISCHARGE.
--- NOTE | 2019-03-03 05:15 | NUR ---
Homeless Discharge: Patient is being discharged from medical care. Awake, alert and oriented x4. After care instructions, including referral to community resources were given. Patient verbalized understanding of After care instructions; at this time patient does not request medications, equipment or placement. Patient signed patient consent in the medical record for patient destination upon discharge. ID BAND REMOVED. PROVIDED PT WITH WEATHER APPROPRIATE CLOTHING AND NOURISHMENT. Patient ambulated out with all personal belongings with steady gait.
[2019-03-03 05:16] VITALS: BP 118/80
== END 2019-03-03 05:17 | disposition home or self-care (01) ==
LOC: EDUNIT# 22:07 → EDBD 22:07 → EMR 22:26
DX: S09.90XA Unspecified injury of head, initial encounter (principal); F10.920 Alcohol use, unspecified with intoxication, uncomplicated; Y09 Assault by unspecified means
CPT/HCPCS: 70450; 99284